=== PATIENT | female | born 1995 | race Caucasian/White ===

== ENCOUNTER 2017-03-21 20:03 | Observation (INO) | payer MEDICAID ==
[2016-08-19 19:30] VITALS: BMI 21.2
[2017-03-21] MEDS ORDERED: Lactated Ringer's 1,000 ML IV ONE (20:37)
[2017-03-21 21:34] LABS: BASO % 0.2 % (0.0-2.0); EOS # 0.4 K/uL (0.0-0.7); EOS % 3.5 % (0.0-4.0); HEMATOCRIT 28.2 % (34.0-47.0); LYMPH # 2.1 K/uL (1.0-4.3); LYMPH % 18.3 % (20.0-40.0); MEAN CELL VOLUME 86.2 fL (81.0-99.0); MEAN CORPUSCULAR HEMOGLOBIN 28.6 pg (27.0-31.0); MEAN CORPUSCULAR HGB CONC 33.2 g/dL (33.0-37.0); MEAN PLATELET VOLUME 9.2 fL (7.2-11.7); MONO # 0.9 K/uL (0.0-0.8); MONO % 8.2 % (0.0-10.0); RED CELL DISTRIBUTION WIDTH 12.5 % (11.5-14.5); WHITE BLOOD COUNT 11.2 K/uL (4.8-10.8)
[2017-03-21 21:36] LABS: CHLORIDE 104 mmol/L (98-107); POTASSIUM 3.5 mmol/L (3.6-5.2); SODIUM 134 mmol/L (132-148)
[2017-03-21 21:38] LABS: AST/SGOT 20 U/L (14-36); BILIRUBIN,TOTAL 0.3 mg/dL (0.2-1.3); CARBON DIOXIDE 23 mmol/L (22-30); GFR AFRICAN-AMERICAN > 60
[2017-03-21 21:39] LABS: ALKALINE PHOSPHATASE 218 U/L (38-126); ALT/SGPT 12 U/L (9-52); BLOOD UREA NITROGEN 7 mg/dL (7-17); GLUCOSE,RANDOM 97 mg/dL (65-105); TOTAL PROTEIN 5.7 g/dL (6.3-8.3)
[2017-03-21 21:40] LABS: CALCIUM 8.9 mg/dl (8.6-10.4)
[2017-03-21 21:51] LABS: RBC URINE 798 /hpf (0-3); URINE BACTERIA FEW (<OCC); URINE BILIRUBIN NEGATIVE (NEGATIVE); URINE BLOOD 3+ (NEGATIVE); URINE COLOR Yellow (YELLOW); URINE GLUCOSE (UA) NORMAL (Normal); URINE KETONE NEGATIVE (NEGATIVE); URINE LEUKOCYTE ESTERASE 3+ Leu/uL (Negative); URINE PROTEIN 2+ mg/dL (NEGATIVE); WBC CLUMPS FEW /hpf; WBC URINE 185 /hpf (0-5)
--- NOTE | 2017-03-21 22:41 | OBHP ---
Datetime: 03/21/2017 20:42 IP Adm Impression: , intrauterine ; No Active Labor IP Admit Plan: Observation/Evaluation Admit Comment, IP Provider: chief complaint-vaginal bleeding HPI 21 y/o at 33 wga by stated YOVANY, with c/o noticing an episode of vaginal bleeding.patient states that she was sitting and watching netflix and then when got upto go to bathroom she noticed bl ood on her underwear.Blood was drak red in color.denies passing any clots.Patient reports that she reyes d intercourse around 11 am today.Just after the intercourse she had noticed no bleeding.denies abdomi nal pain or pelvic pressure course-pnc with [facility] [place]; failed 1 hour gtt but has not done 3hr gtt PMH denies PSH denies OBGYN HX ; NVDX1; SABX1; TOPX1 Social hx denies tobacco,alcohol or illicit drug use Exam see exam section A/P 21 y/o at 33 wga with c/o episode of vaginal bleeding.?post coital versus other causes -abruption labs -ultrasound -iv fluids -urine drug screen and ua 10.15 pm patient states that she noticed only dark red blood on wiping whcih is scant now deneis abdominal pain urine drug screen negative plt 242k h/h 9.4/28.2 pt/ptt wnl fibrinogen 445 A/P 21 y/o at 33 wga with c/o vaginal bleeding. no active bleeding now -admit for observation Pelvic Type - PN: Adequate Extremities - PN: Normal Abdomen - PN: Normal Back - PN: Normal General - PN: Normal Contraction Comments Provider: none Comments, ACOG Physical Exam: pelvic exam vulva no lesions vagina dark red blood in vault cervix close duterus gravid adnexa no adnexal tenderness Gestation - Est Wks by US: 33.0 IP Hx Assessment: The History has been Reviewed and is Current EGA AdmitDate IP: 33.0 Vital Signs Provider: Reviewed IP Chief Complaint: Vaginal bleeding FHR Category Provider Fetus A: Category I Dilatation, Provider: 0 Genitourinary Exam: Abnormal DTRs - PN: Normal
[2017-03-21] MEDS ORDERED: Lactated Ringer's 1,000 ML IV SCH (22:45)
[2017-03-21] MEDS ORDERED: guaiFENesin 100 mg/5 ml Syrup UD PO PRN (23:34)
--- NOTE | 2017-03-21 23:57 | US ---
EXAM: US Biophys Prof W Non-Stress CLINICAL HISTORY: 21 years old, female; Signs and symptoms; Other: Bleeding; ; Additional info: Vaginal bleeding TECHNIQUE: Real-time ultrasound of the biophys prof w non-stress with image documentation. EXAM DATE/TIME: 03/21/2017 8:39 PM COMPARISON: No relevant prior studies available. FINDINGS: There is a live intrauterine . Measurements of the biparietal diameter, head circumference, abdominal circumference, femur length correspond to gestational age of 31 weeks 5 days. A heart rate of 158 beats per minute was obtained. The fetus is cephalic in presentation. Stomach, kidneys, and urinary bladder were identified. Limited images of the spine were submitted. The placenta is anterior in location. Punctate calcifications are noted. No placenta previa. The cervix measures 4 cm (transperineal). Amniotic fluid index of 10.8 cm was measured. There is a BPP of 8 out of 8 (breathing, movement, tone, fluid volume). IMPRESSION: Single live IUP with BPP of 8 out of 8 (breathing, movement, tone, fluid volume).
--- NOTE | 2017-03-22 09:15 | OBPN ---
Datetime: 03/22/2017 09:07 IP Progress Impression Other: Resolved Postcoital bleeding IP Progress Impression: Reassuring heart rate IP Procedures: Sterile Vag Exam IP Progress Plan: Discharge Membranes, Provider: Intact Contraction Comments Provider: occasional FHR - Baseline A Provider: 150 Gestation - Est Wks by US: 33.1 IP Progress Note Comment: 18yo S/P observation for postcoital bleeding. Pt reports no bleeding for the past 6 hours. She denies LOF and feels good movements. Tomas De Castro; occasional FHR- regular. Cx; Closed, No active bleeding Assessment: IUP at 33wks Postcoital Bleeding, Resolved Plan: D/c Home. F/U with [facility] [place] on Saturday. Labor instructions given. Pt to return to the ER with resumption of bleeding. NICHD Accel Fetus A IP Provider: 15X15 FHR Category Provider Fetus A: Category I NICHD Variability Prov Fetus A: Moderate 6-25bpm Dilatation, Provider: 0 Effacement, Provider: 0 Station, Provider: -3 Datetime: 03/21/2017 20:42 Vital Signs Provider: Reviewed
--- NOTE | 2017-03-22 09:17 | OBDCSUM ---
Datetime: 03/22/2017 09:11 Discharged to, Provider: Home Follow up at, Provider: Lisa Gaston CNM Disch Instr Activity: Normal activity Disch Instr Diet: Regular Discharge Diagnosis, Provider: Antepartum Bleeding Discharge Time: 03/22/2017 09:12 Follow up in weeks, Provider: 03/25/2017 Follow up in weeks, Provider: 1 week Discharge Comment, Provider: S/P Observation for Postcoital bleeding- Resolved Discharge Diagnosis Prov Other: S/P Observation for Postcoital bleeding- Resolved
--- NOTE | 2017-03-22 10:21 | RAD ---
PROCEDURE: CHEST RADIOGRAPH, 1 VIEW HISTORY: chronic cough COMPARISON: None available. FINDINGS: LUNGS: Clear. PLEURA: No pneumothorax or pleural fluid seen. CARDIOVASCULAR: Normal. OSSEOUS STRUCTURES: No significant abnormalities. VISUALIZED UPPER ABDOMEN: Normal. OTHER FINDINGS: None. IMPRESSION: No active disease.
== END 2017-03-22 09:30 | disposition home or self-care (01) ==
LOC: C.EROB 20:03 → C.4D 22:36
PROVIDERS: ADMIT Student in an Organized Health Care Education/Training Program; ATTEND Student in an Organized Health Care Education/Training Program
DX: N93.0 Postcoital and contact bleeding (principal); Z3A.33 33 weeks gestation of pregnancy
CPT/HCPCS: 71010; 76815; 76818; 80053; 80324; 80345; 80346; 80349; 80353; 80358; 80361; 81001; 83992; 85025; 85384; 85610; 85730; 86850; 86900; 99284; G0378; J7120

== ENCOUNTER 2017-04-20 13:32 | Emergency (ER) | payer MEDICAID ==
[2016-08-19 19:30] VITALS: BMI 21.2
--- NOTE | 2017-04-20 14:09 | OBHP ---
Datetime: 04/20/2017 14:00 IP Adm Impression: Term, intrauterine ; No Active Labor IP Admit Plan: Discharge home Admit Comment, IP Provider: Chief complaint-contraction HPI 21 y/o at 37.2 wga by stated YOVANY,36 weeks by ultrasound done on03/21/2017, presents to [place] with c/o contractions since 3 cm.denies vaginal bleeding or loss of fluid.Denies nausea, vomiting, h eadache, chest pain, shortness of breath, numbness or tingling in hands and feet course-pnc with [facility]; failed 1 hour gtt but has not done 3hr gtt; a ntepartum vaginal bleeding after intercourse at 33 weeks PMH denies PSH denies OBGYN HX ; NVDX1; SABX1; TOPX1 Social hx denies tobacco,alcohol or illicit drug use Exam see exam section A/P 21 y/o at 37.2 wga with c/o contractions.Patient in no apparent distress.FS glucsoe 80mg/ dl(approx 2 hr after lunch) -cervix closed -patient discharged home -follow up in clinic on saturday -patient given active labor precautions Pelvic Type - PN: Adequate Extremities - PN: Normal Abdomen - PN: Normal Back - PN: Normal Lungs - PN: Normal Heart - PN: Normal Neurologic - PN: Normal General - PN: Normal Weight - Estimated: 3000 Presentation-Admit: Vertex Contraction Comments Provider: irregular Gestation - Est Wks by US: 36.0 IP Hx Assessment: The History has been Reviewed and is Current EGA AdmitDate IP: 37.2 Vital Signs Provider: Reviewed IP Chief Complaint: Uterine contractions FHR Category Provider Fetus A: Category I Dilatation, Provider: 0 Effacement, Provider: thick Station, Provider: high Genitourinary Exam: Normal DTRs - PN: Normal Datetime: 03/22/2017 09:07 FHR - Baseline A Provider: 150 Membranes, Provider: Intact NICHD Variability Prov Fetus A: Moderate 6-25bpm NICHD Accel Fetus A IP Provider: 15X15
--- NOTE | 2017-04-24 01:15 | OBPPN ---
Datetime: 04/23/2017 08:07 PP Pain Prov: Within normal limits PP Nausea Prov: Denies PP Flatus Prov: Yes PP Heart Prov: Normal PP Lungs Prov: Normal PP Abdomen/Uterus Prov: Normal PP Lochia Prov: Normal PP CVA Tenderness Prov: Normal PP Extremities Prov: Normal PP C/S Incision Prov: Not Applicable PP Progress Prov: Not Applicable PP Impression Prov: Normal progression PP Plan Prov: Continue present management PP Progress Note Prov: S-patient denies any complaint.denies nausea, vomiting, headache, chest pain, shortness of breath, numbness or tingling in hands and feet.ambulating and voiding without diffuclty O-VSS Afebrile Fundus firm and below umbilcus extremities no calf tenderness A/P Patient s/p vaginal delivery ppd 1.occ elevtaed bp -check pih labs -continue to monitor closely Vital Signs Provider PP: Reviewed Vital Signs Provider Details PP: joel [id number]
--- NOTE | 2017-04-24 07:37 | OBPPN ---
Datetime: 04/24/2017 07:36 PP Pain Prov: Within normal limits PP Nausea Prov: Denies PP Flatus Prov: Yes PP Abdomen/Uterus Prov: Normal PP Lochia Prov: Normal PP Extremities Prov: Normal PP Comments Phys Exam Prov: fudus below umblicus ext mild edema,no calf ten PP Impression Prov: Normal progression PP Plan Prov: Discharge PP Progress Note Prov: pt was seen at bed side, pain under control, no n/v, tolerating deit, voiding ,min lochia, flatus+ ppd#2 s/p dc home no sex motrin prn f/u in 2days for bp check Vital Signs Provider PP: Reviewed; Within Normal Limits
--- NOTE | 2017-04-24 07:42 | OBDCSUM ---
Datetime: 04/24/2017 07:37 Discharged to, Provider: Home Follow up at, Provider: 2days Discharge Diagnosis, Provider: Term Delivered Follow up in weeks, Provider: clinic Disch Activity Restrictions: No lifting; No driving; Minimize walking; Minimize stair-climbing; No s exual activity; Nothing in vagina - [place], tampons, douche Discharge Comment, Provider: no sex motrin prn f/u in 2days for bp check preeclamptic s/s given Discharge Diagnosis Prov Other: 39weeks s/p
== END 2017-04-20 14:12 | disposition home or self-care (01) ==
LOC: C.EROB 13:32
DX: O47.1 False labor at or after 37 completed weeks of gestation (principal); Z3A.37 37 weeks gestation of pregnancy

== ENCOUNTER 2017-04-22 01:17 | Inpatient (IN) | payer MEDICAID ==
[2017-04-22 01:49] VITALS: BMI 24.7
[2017-04-22] MEDS ORDERED: Penicillin G 5 Million Unit Vial IVPB ONE ×2 (01:52→02:25)
--- NOTE | 2017-04-22 01:54 | OBADHP ---
Datetime: 04/22/2017 01:46 Admit Comment, IP Provider: Chief complaint-contractions HPI 21 y/o at 37.4 wga by stated YOVANY,36.2 weeks by ultrasound done on03/21/2017, presents to ob ed with c/o contractions .denies vaginal bleeding or loss of fluid.Denies nausea, vomiting, headache, chest pain, shortness of breath, numbness or tingling in hands and feet Patient was seen yesterday andwas discharged home as the cervix was closed course-[facility]; failed 1 hour gtt but has not done 3hr gtt; a ntepartum vaginal bleeding after intercourse at 33 weeks PMH denies PSH denies OBGYN HX ; NVDX1; SABX1; TOPX1 Social hx denies tobacco,alcohol or illicit drug use Exam see exam section A/P 21 y/o at 37.4 wga in labor.gbs unknown.patient in pain.repeat bp again -admit -see orders Pelvic Type - PN: Adequate Extremities - PN: Normal Abdomen - PN: Normal Back - PN: Normal Breast - PN: Normal Lungs - PN: Normal Heart - PN: Normal Neurologic - PN: Normal General - PN: Normal Weight - Estimated: 3000 Presentation-Admit: Vertex Contraction Comments Provider: every 2-3min Gestation - Est Wks by US: 37.4 IP Hx Assessment: The History has been Reviewed and is Current Vital Signs Provider: Reviewed IP Chief Complaint: Uterine contractions FHR Category Provider Fetus A: Category I Dilatation, Provider: 2 Effacement, Provider: 80 Station, Provider: -2 Genitourinary Exam: Normal DTRs - PN: Normal EGA AdmitDate IP: 37.4 IP Adm Impression: Term, intrauterine ; Active labor IP Admit Plan: Admit to unit; Initiate labor protocol Datetime: 03/22/2017 09:07 FHR - Baseline A Provider: 150 Membranes, Provider: Intact NICHD Variability Prov Fetus A: Moderate 6-25bpm NICHD Accel Fetus A IP Provider: 15X15
[2017-04-22 02:29] LABS: BASO # 0.1 K/uL (0.0-0.2); EOS # 0.3 K/uL (0.0-0.7); EOS % 2.6 % (0.0-4.0); WHITE BLOOD COUNT 13.6 K/uL (4.8-10.8)
[2017-04-22 02:33] LABS: BASO % 0.4 % (0.0-2.0); HEMOGLOBIN 10.6 g/dL (11.0-16.0); LYMPH # 2.5 K/uL (1.0-4.3); LYMPH % 18.3 % (20.0-40.0); MEAN CELL VOLUME 87.2 fL (81.0-99.0); MEAN CORPUSCULAR HEMOGLOBIN 28.5 pg (27.0-31.0); MEAN CORPUSCULAR HGB CONC 32.6 g/dL (33.0-37.0); MEAN PLATELET VOLUME 10.5 fL (7.2-11.7); MONO # 1.2 K/uL (0.0-0.8); MONO % 8.6 % (0.0-10.0); NEUT # 9.5 K/uL (1.8-7.0); NEUT % 70.1 % (50.0-75.0); NRBC % 0.1 % (0.0-2.0); RBC 3.71 Mil/uL (3.80-5.20); RED CELL DISTRIBUTION WIDTH 13.8 % (11.5-14.5)
[2017-04-22 02:36] LABS: SQUAMOUS EPITHIAL 4 /hpf (0-5); URINE BACTERIA OCC (<OCC); URINE BILIRUBIN NEGATIVE (NEGATIVE); URINE BLOOD NEGATIVE (NEGATIVE); URINE CLARITY Hazy (Clear); URINE COLOR Yellow (YELLOW); URINE GLUCOSE (UA) NORMAL (Normal); URINE LEUKOCYTE ESTERASE 3+ Leu/uL (Negative); URINE NITRATE NEGATIVE (NEGATIVE); URINE PROTEIN 2+ mg/dL (NEGATIVE); URINE UROBILINOGEN NORMAL mg/dL (0.2-1.0)
[2017-04-22 02:37] LABS: ALBUMIN 2.5 g/dL (3.5-5.0)
[2017-04-22 02:39] LABS: BENZODIAZEPINES, UR NEGATIVE (NEGATIVE)
[2017-04-22 02:40] LABS: ALT/SGPT 36 U/L (9-52); AST/SGOT 36 U/L (14-36); BARBITURATES, UR NEGATIVE (NEGATIVE); BLOOD UREA NITROGEN 10 mg/dL (7-17); GFR AFRICAN-AMERICAN > 60; GFR NON-AFRICAN AMERICAN > 60
[2017-04-22 02:41] LABS: CALCIUM 8.2 mg/dl (8.6-10.4)
[2017-04-22 02:43] LABS: OPIATES, UR NEGATIVE (NEGATIVE); PHENCYCLIDINE, UR NEGATIVE (NEGATIVE)
[2017-04-22 03:11] LABS: HEPATITIS B SURFACE AG NEGATIVE (NEGATIVE)
[2017-04-22 03:16] LABS: ALB/GLOB RATIO 0.9 (1.0-2.1)
[2017-04-22] MEDS ORDERED: Lactated Ringer's 1,000 ML IV SCH (05:15)
[2017-04-22] MEDS ORDERED: Oxytocin 30 UNIT 30 UNITS/500 ML BAG IV SCH ×2 (05:30→08:00)
[2017-04-22] MEDS ORDERED: Oxytocin 30 UNIT 30 UNITS/500 ML BAG IV ONE (05:31)
[2017-04-22] MEDS ORDERED: Bupivacaine HCl 0.25% PF (10 ml) Inj ONE (06:20)
[2017-04-22] MEDS ORDERED: Lidocaine 2% Inj (20ml) ONE (07:35)
[2017-04-22] MEDS ORDERED: Benzocaine/Menthol 20%-0.5% Topical Spray (60 ml) TOP PRN (07:56)
--- NOTE | 2017-04-22 08:08 | OBDS ---
DELIVERY PERSONNEL Delivery Doctor: Fred Jeong MD Anesthesiologist: Liza Francois MD MATERNAL INFORMATION Estimated Blood Loss (ml): 200 Provider Comments: baby deliverd in hiram. end clean no com LABOR SUMMARY EDC: 05/09/2017 00:00 No. Babies in Womb: 1 LABOR INFORMATION Onset of Labor: 04/22/2017 00:00 MEMBRANES Membranes Rupture Method: Spontaneous Rupture of Membranes: 04/22/2017 06:15 Length of Rupture (hrs): 1.72 Amniotic Fluid Color: Clear Amniotic Fluid Amount: Small Amniotic Fluid Odor: Normal STAGES OF LABOR Stage 3 hrs: 0 Stage 3 min: 6 Total Time in Labor hrs: 8 Total Time in Labor min: 4 VAGINAL DELIVERY Episiotomy: None Laceration Extension: N/A Laceration Type: None Sponge Count Correct: Yes Sharps Count Correct: N/A BABY A INFORMATION Delivery Date/Time: 04/22/2017 07:58 Method of Delivery: Vaginal Born in Route : No : N/A Forceps: N/A Vacuum Extraction: N/A Shoulder Dystocia : No SHOULDER DYSTOCIA BABY A Delivery Date/Time: 04/22/2017 07:58 PRESENTATION/POSITION BABY A Presentation: Cephalic Cephalic Presentation: Vertex Vertex Position: Left Occipital Anterior Breech Presentation: N/A PLACENTA INFORMATION BABY A Placenta Delivery Time : 04/22/2017 08:04 Placenta Method of Delivery: Spontaneous Placenta Status: Delivered INFANT INFORMATION BABY A Gestational Age at Delivery: 37.4 Gestational Status: Term Outcome : Liveborn Condition : Stable Infant Sex: Female IDENTIFICATION/MEDS BABY A ID Band Number: [id number] Sensor Applied: Yes Sensor Number: [id number] CORD INFORMATION BABY A Nuchal Cord : N/A
--- NOTE | 2017-04-22 08:08 | OBPN ---
Datetime: 04/22/2017 08:07 IP Progress Impression: Normal progression of labor IP Procedures: Sterile Vag Exam FHR - Baseline A Provider: 130 IP Progress Note Comment: pt was examined at bed side ve fd/1`00/0anticipate Vital Signs Provider: Reviewed; Within Normal Limits NICHD Accel Fetus A IP Provider: 15X15 FHR Category Provider Fetus A: Category I NICHD Variability Prov Fetus A: Moderate 6-25bpm Dilatation, Provider: 10 Effacement, Provider: 10 Station, Provider: -2 Datetime: 04/22/2017 01:46 Contraction Comments Provider: every 2-3min Gestation - Est Wks by US: 37.4 Weight - Estimated: 3000 Presentation-Admit: Vertex
[2017-04-22 17:15] LABS: RAPID PLASMA REAGIN NONREACTIVE (NONREACTIVE)
[2017-04-23] MEDS: Oxycodone/Acetaminophen 5/325 mg Tab PO PRN (04:07)
[2017-04-23 08:36] LABS: BASO # 0.1 K/uL (0.0-0.2); BASO % 0.5 % (0.0-2.0); EOS # 0.6 K/uL (0.0-0.7); HEMOGLOBIN 10.5 g/dL (11.0-16.0); LYMPH # 3.7 K/uL (1.0-4.3); MEAN CELL VOLUME 87.5 fL (81.0-99.0); MEAN CORPUSCULAR HEMOGLOBIN 28.8 pg (27.0-31.0); MEAN CORPUSCULAR HGB CONC 32.9 g/dL (33.0-37.0); MEAN PLATELET VOLUME 10.3 fL (7.2-11.7); MONO # 0.9 K/uL (0.0-0.8); MONO % 6.4 % (0.0-10.0); NEUT # 8.9 K/uL (1.8-7.0); NEUT % 63.1 % (50.0-75.0); RBC 3.64 Mil/uL (3.80-5.20); RED CELL DISTRIBUTION WIDTH 14.1 % (11.5-14.5)
[2017-04-23 08:41] LABS: INR 0.9; PROTHROMBIN TIME 9.7 SECONDS (9.7-12.2)
[2017-04-23 08:56] LABS: ALBUMIN 2.3 g/dL (3.5-5.0)
[2017-04-23 08:58] LABS: GFR AFRICAN-AMERICAN > 60; GFR NON-AFRICAN AMERICAN > 60
[2017-04-23 08:59] LABS: ALB/GLOB RATIO 0.9 (1.0-2.1); ALT/SGPT 33 U/L (9-52); AST/SGOT 34 U/L (14-36); BILIRUBIN,DIRECT 0.3 mg/dL (0.0-0.4); BLOOD UREA NITROGEN 10 mg/dL (7-17); CALCIUM 8.5 mg/dl (8.6-10.4)
[2017-04-24] MEDS: Oxycodone/Acetaminophen 5/325 mg Tab PO PRN (00:28)
[2017-04-24 03:42] VITALS: O2SAT 98
[2017-04-24 08:05] VITALS: BP 146/99; PULSE 82; RESP 18; TEMP 98.2
[2017-04-24] MEDS ORDERED: Measles, Mumps, and Rubella 0.5 ML VIAL SC ONE (10:00)
== END 2017-04-24 12:30 | disposition home or self-care (01) | DRG 373 ==
LOC: C.EROB 01:17 → C.4D 01:30 → C.4M 09:45
PROVIDERS: ADMIT Student in an Organized Health Care Education/Training Program; ATTEND Student in an Organized Health Care Education/Training Program
PROC: 10E0XZZ Delivery of Products of Conception, External Approach (ICD-10-PCS; principal; 2017-04-22)
DX: O80 Encounter for full-term uncomplicated delivery (principal); Z37.0 Single live birth; Z3A.37 37 weeks gestation of pregnancy

== ENCOUNTER 2017-09-24 19:17 | Emergency (ER) | payer MEDICAID ==
[2017-09-24 19:18] VITALS: BMI 24.7
[2017-09-24 19:28] VITALS: RESP 20; O2SAT 99
[2017-09-24] MEDS ORDERED: Lactated Ringer's 1,000 ML IV STA (20:45)
[2017-09-24 20:58] LABS: BASO % 0.5 % (0.0-2.0); EOS # 0.4 K/uL (0.0-0.7); EOS % 4.9 % (0.0-4.0); LYMPH # 2.1 K/uL (1.0-4.3); LYMPH % 23.5 % (20.0-40.0); MEAN CELL VOLUME 87.6 fL (81.0-99.0); MEAN CORPUSCULAR HEMOGLOBIN 29.5 pg (27.0-31.0); MEAN CORPUSCULAR HGB CONC 33.7 g/dL (33.0-37.0); MEAN PLATELET VOLUME 8.5 fL (7.2-11.7); MONO # 0.7 K/uL (0.0-0.8); MONO % 8.1 % (0.0-10.0); RED CELL DISTRIBUTION WIDTH 13.2 % (11.5-14.5); WHITE BLOOD COUNT 9.1 K/uL (4.8-10.8)
[2017-09-24] MEDS ORDERED: Lactated Ringer's 1,000 ML ONE (21:03)
--- NOTE | 2017-09-24 21:04 | C.PDOC ---
History Of Present Illness 22 year old female with a Hx of pancreatitis presents to the ER with a complaint of abdominal pain, associated with nausea and vomiting. Patient reports she was hospitalized twice before in the past for pancreatitis and notes her pain feels similar to past episodes. Denies bloody stools, dysuria, or hematuria. Chief Complaint (Nursing): Abdominal Pain History Per: Patient History/Exam Limitations: no limitations Onset/Duration Of Symptoms: Hrs Current Symptoms Are (Timing): Still Present Location Of Pain/Discomfort: Diffuse Radiation Of Pain To:: None Quality Of Discomfort: Unable To Describe Associated Symptoms: Nausea, Vomiting. denies: Fever, Chills, Urinary Symptoms Exacerbating Factors: None Alleviating Factors: None Recent travel outside of the [place]: No Abnormal Vaginal Bleeding: No Past Medical History Reviewed: Historical Data, Nursing Documentation, Vital Signs Vital Signs: Last Vital Signs Temp 98 F 09/24/17 22:26 Pulse 80 09/24/17 22:26 Resp 20 09/24/17 22:26 BP 111/73 09/24/17 22:26 Pulse Ox 99 09/24/17 22:26 - Medical History PMH: Arthritis, Pancreatitis - [facility] Procedures DELIVERY OF PRODUCTS OF CONCEPTION, EXTERNAL APPROACH (04/22/17) MANUAL ASSIST DELIV NEC (08/20/14) MEDICAL INDUCTION LABOR (08/20/14) Family History: States: Unknown Family Hx - Social History Hx Tobacco Use: No Hx Alcohol Use: No Hx Substance Use: No - Immunization History Hx Tetanus Toxoid Vaccination: No Hx Influenza Vaccination: No Hx Pneumococcal Vaccination: No Review Of Systems Constitutional: Negative for: Fever, Chills Gastrointestinal: Positive for: Nausea, Vomiting, Abdominal Pain Genitourinary: Negative for: Dysuria, Hematuria Physical Exam - Physical Exam Appears: Non-toxic Skin: Normal Color, Warm, Dry Head: Atraumatic, Normacephalic Eye(s): bilateral: Normal Inspection Oral Mucosa: Moist Chest: Symmetrical, No Tenderness Cardiovascular: Rhythm Regular Respiratory: Normal Breath Sounds, No Rales, No Rhonchi, No Wheezing Gastrointestinal/Abdominal: Soft, Tenderness (Epigastric), No Guarding, No Rebound Neurological/Psych: Oriented x3, Normal Speech ED Course And Treatment - Laboratory Results Result Diagrams: 09/24/17 20:53 09/24/17 20:53 O2 Sat by Pulse Oximetry: 99 (room air) Pulse Ox Interpretation: Normal Progress Note: CT abd/pel, blood work, and urinalysis ordered. IV fluids, pepcid , toradol, and zofran administered. Disposition - Disposition Referrals: Romero Romero, [Non-Staff] - Disposition: HOME/ ROUTINE Disposition Time: 22:50 Condition: IMPROVED Additional Instructions: Thank you for letting us take care of you today. The emergency medical care you received today was directed at your acute symptoms. If you were prescribed any medication, please fill it and take as directed. It may take several days for your symptoms to resolve. Return to the Emergency Department if your symptoms worsen, do not improve, or if you have any other problems. Please contact your doctor or call one of the physicians/clinics you have been referred to that are listed on the Patient Visit Information form that is included in your discharge packet. Bring any paperwork you were given at discharge with you along with any medications you are taking to your follow up visit. Our treatment cannot replace ongoing medical care by a primary care provider (PCP) outside of the emergency department. Thank you for allowing the [email or web address] team to be part of your care today. Follow up with your [facility] doctor this week for outpatient care and management. Prescriptions: Vit No.126/Iron/Folic [Classic Tablet] 1 each PO DAILY #30 tablet Instructions: Abdominal Pain in (ED) Forms: [employer] (Ukrainian) - Clinical Impression Clinical Impression: Abdominal pain during - Scribe Statement The provider has reviewed the documentation as recorded by the Scribe Garrick Le All medical record entries made by the Scribe were at my direction and personally dictated by me. I have reviewed the chart and agree that the record accurately reflects my personal performance of the history, physical exam, medical decision making, and the department course for this patient. I have also personally directed, reviewed, and agree with the discharge instructions and disposition.
[2017-09-24 21:09] LABS: RBC URINE 5 /hpf (0-3); URINE BACTERIA RARE (<OCC); URINE BILIRUBIN NEGATIVE (NEGATIVE); URINE BLOOD NEGATIVE (NEGATIVE); URINE COLOR Yellow (YELLOW); URINE GLUCOSE (UA) NORMAL (Normal); URINE KETONE NEGATIVE (NEGATIVE); URINE LEUKOCYTE ESTERASE 2+ Leu/uL (Negative); URINE PROTEIN NEGATIVE (NEGATIVE); WBC URINE 27 /hpf (0-5)
[2017-09-24 21:19] LABS: ALB/GLOB RATIO 1.6 (1.0-2.1); ALKALINE PHOSPHATASE 59 U/L (38-126); ALT/SGPT 44 U/L (9-52); AST/SGOT 20 U/L (14-36); BILIRUBIN,TOTAL 0.3 mg/dL (0.2-1.3); BLOOD UREA NITROGEN 10 mg/dL (7-17); CARBON DIOXIDE 25 mmol/L (22-30); CHLORIDE 103 mmol/L (98-107); GFR AFRICAN-AMERICAN > 60; GLUCOSE,RANDOM 80 mg/dL (65-105); POTASSIUM 3.6 mmol/L (3.6-5.2); SODIUM 137 mmol/L (132-148); TOTAL PROTEIN 6.5 g/dL (6.3-8.3)
[2017-09-24 22:27] VITALS: BP 111/73; PULSE 80; TEMP 98
== END 2017-09-24 23:06 | disposition home or self-care (01) ==
LOC: C.ER 19:17
DX: O26.899 Other specified pregnancy related conditions, unspecified trimester (principal); R10.9 Unspecified abdominal pain
CPT/HCPCS: 80053; 81001; 83690; 84702; 84703; 85025; 87086; 96374; 96375; 99284; J1885; J2405; J7120

== ENCOUNTER 2017-12-14 13:49 | Emergency (ER) | payer MEDICAID ==
[2017-12-14 13:50] VITALS: BMI 24.7
[2017-12-14 13:56] VITALS: BP 113/76; PULSE 97; RESP 20; TEMP 98; O2SAT 100
--- NOTE | 2017-12-14 14:10 | C.PDOC ---
History Of Present Illness 22-year-old female, presents to the emergency department with complaints of a frontal headache, clogged ears, sore throat ongoing over one week. Patient states she feels light headedness that is associated with nasal congestion and yellow mucus. Patient is taking Tylenol and Advil at home with minimal relief. Denies fever Time Seen by Provider: 12/14/17 14:05 Chief Complaint (Nursing): Headache History Per: Patient History/Exam Limitations: no limitations Onset/Duration Of Symptoms: Days Current Symptoms Are (Timing): Still Present Past Medical History Reviewed: Historical Data, Nursing Documentation, Vital Signs Vital Signs: Last Vital Signs Temp 98 F 12/14/17 13:54 Pulse 97 H 12/14/17 13:54 Resp 20 12/14/17 13:54 BP 113/76 12/14/17 13:54 Pulse Ox 100 12/14/17 16:26 - Medical History PMH: Arthritis, Pancreatitis - [facility] Procedures DELIVERY OF PRODUCTS OF CONCEPTION, EXTERNAL APPROACH (04/22/17) MANUAL ASSIST DELIV NEC (08/20/14) MEDICAL INDUCTION LABOR (08/20/14) Family History: States: No Known Family Hx - Social History Hx Tobacco Use: No Hx Alcohol Use: No Hx Substance Use: No - Immunization History Hx Tetanus Toxoid Vaccination: No Hx Influenza Vaccination: No Hx Pneumococcal Vaccination: No Review Of Systems Constitutional: Negative for: Fever ENT: Negative for: Ear Pain (clogged) Cardiovascular: Positive for: Light Headedness. Negative for: Chest Pain Respiratory: Positive for: Cough, Sputum Gastrointestinal: Negative for: Vomiting Musculoskeletal: Negative for: Neck Pain, Back Pain Skin: Negative for: Rash Neurological: Positive for: Headache. Negative for: Weakness Physical Exam - Physical Exam Appears: Non-toxic, No Acute Distress Skin: Normal Color, Warm, Dry, No Rash Head: Atraumatic, Normacephalic, No Tenderness, No Swelling Eye(s): bilateral: Normal Inspection, PERRL, EOMI Ear(s): Bilateral: Normal (no erythema) Nose: Normal Oral Mucosa: Moist Lips: Normal Appearing Throat: No Erythema Neck: Normal ROM, Trachea Midline, Supple, Other ((-)meningeal signs) Cardiovascular: Rhythm Regular, No Murmur Respiratory: Normal Breath Sounds, No Accessory Muscle Use, No Wheezing Gastrointestinal/Abdominal: Soft, No Tenderness, No Guarding, No Rebound Back: Normal Inspection, No CVA Tenderness Extremity: Normal ROM, No Deformity, No Swelling Neurological/Psych: Oriented x3, Normal Speech, Normal Cranial Nerves, Normal Motor, Normal Sensation Gait: Steady ED Course And Treatment O2 Sat by Pulse Oximetry: 100 (RA) Pulse Ox Interpretation: Normal Medical Decision Making Medical Decision Making: Patient will be discharged with Rx for Augmentin and Sudafed, she will be advised Take medications as prescribed, take Tylenol or Motrin alternating every 4-6 hours for Fever 100.4F or higher. Rest and drink plenty of fluids, try taking over the counter antihistamine. Return to the emergency department at any time if symptoms persist or worsen. Disposition Counseled Patient/Family Regarding: Diagnosis, Need For Followup, Rx Given - Disposition Disposition: HOME/ ROUTINE Disposition Time: 14:08 Condition: STABLE Additional Instructions: Please follow up with your primary doctor or clinic in 2-5 days for further evaluation. Take medications as prescribed. Take Tylenol or Motrin alternating every 4-6 hours for Fever 100.4F or higher. Rest and drink plenty of fluids. MTry taking over the counter antihistamine. Return to the emergency department at any time if symptoms persist or worsen. Prescriptions: Amoxicillin/Clavulanate [Augmentin 875 MG-125 MG] 1 tab PO BID #14 tab Pseudoephedrine HCl [Sudafed 12-Hour] 120 mg PO Q12 #24 tablet.er Instructions: Sinusitis in Adults Forms: [facility] (Stateless) - POA Present On Arrival: None - Clinical Impression Clinical Impression: Sinusitis - Scribe Statement The provider has reviewed the documentation as recorded by the Scribe (Williams Palma) All medical record entries made by the Scribe were at my direction and personally dictated by me. I have reviewed the chart and agree that the record accurately reflects my personal performance of the history, physical exam, medical decision making, and the department course for this patient. I have also personally directed, reviewed, and agree with the discharge instructions and disposition.
== END 2017-12-14 14:37 | disposition home or self-care (01) ==
LOC: C.ER 13:49
DX: J32.9 Chronic sinusitis, unspecified (principal)

== ENCOUNTER 2018-01-08 14:38 | Emergency (ER) | payer MEDICAID ==
[2018-01-08 14:38] VITALS: BMI 24.7
[2018-01-08 16:01] LABS: HCG,QUALITATIVE URINE NEGATIVE (NEGATIVE)
[2018-01-08 16:13] LABS: SQUAMOUS EPITHIAL 8 /hpf (0-5); URINE BACTERIA MANY (<OCC); URINE BILIRUBIN NEGATIVE (NEGATIVE); URINE CLARITY Hazy (Clear); URINE COLOR Yellow (YELLOW); URINE GLUCOSE (UA) NORMAL (Normal); URINE PROTEIN 1+ mg/dL (NEGATIVE); URINE UROBILINOGEN NORMAL mg/dL (0.2-1.0)
[2018-01-08 16:14] LABS: URINE BLOOD 1+ (NEGATIVE); URINE LEUKOCYTE ESTERASE 3+ Leu/uL (Negative)
--- NOTE | 2018-01-08 16:27 | C.PDOC ---
History Of Present Illness 22 y/o female presents to the ER complaining of dysuria, frequency,and urgency which has been present for the past 1 day. Patient states that she also has subjective fever. She denies having nausea, vomiting, and diarrhea. Time Seen by Provider: 01/08/18 14:50 Chief Complaint (Nursing): Female Genitourinary History Per: Patient History/Exam Limitations: no limitations Onset/Duration Of Symptoms: Days Current Symptoms Are (Timing): Still Present Severity: Moderate Past Medical History Reviewed: Historical Data, Nursing Documentation, Vital Signs Vital Signs: Last Vital Signs Temp 98.6 F 01/08/18 16:24 Pulse 85 01/08/18 16:24 Resp 16 01/08/18 16:24 BP 102/67 01/08/18 16:24 Pulse Ox 100 01/08/18 17:04 - Medical History PMH: Arthritis, Pancreatitis Surgical History: No Surg Hx - [facility] Procedures DELIVERY OF PRODUCTS OF CONCEPTION, EXTERNAL APPROACH (04/22/17) MANUAL ASSIST DELIV NEC (08/20/14) MEDICAL INDUCTION LABOR (08/20/14) Family History: States: No Known Family Hx - Social History Hx Tobacco Use: No Hx Alcohol Use: No Hx Substance Use: No - Immunization History Hx Tetanus Toxoid Vaccination: No Hx Influenza Vaccination: No Hx Pneumococcal Vaccination: No Review Of Systems Except As Marked, All Systems Reviewed And Found Negative. Constitutional: Positive for: Fever (subjective fever). Negative for: Chills Gastrointestinal: Negative for: Nausea, Vomiting, Diarrhea Genitourinary: Positive for: Dysuria, Frequency Physical Exam - Physical Exam Appears: Non-toxic, No Acute Distress Skin: Normal Color, Warm Head: Atraumatic, Normacephalic Eye(s): bilateral: Normal Inspection Ear(s): Bilateral: Normal Nose: Normal Oral Mucosa: Moist Throat: Normal, No Erythema, No Exudate Neck: Supple Chest: Symmetrical Cardiovascular: Rhythm Regular Respiratory: Normal Breath Sounds, No Rales, No Rhonchi, No Wheezing Gastrointestinal/Abdominal: Soft, Tenderness (mild suprapubic tenderness) Extremity: Normal ROM Neurological/Psych: Oriented x3, Normal Speech ED Course And Treatment O2 Sat by Pulse Oximetry: 100 (RA) Pulse Ox Interpretation: Normal Progress Note: Patient given Pyridium PO and Macrobid PO.HCG and UA ordered. Disposition - Disposition Disposition: HOME/ ROUTINE Disposition Time: 16:25 Condition: STABLE Additional Instructions: Follow up with PMD within 1-2 days. Return to ED if feel worse. Prescriptions: Nitrofurantoin Macrocrystals [Macrobid] 1 cap PO BID #14 cap Phenazopyridine [Pyridium] 200 mg PO TID #10 tab Instructions: Urinary Tract Infections in Adults Forms: [facility] (French) - Clinical Impression Clinical Impression: UTI (urinary tract infection) - PA / DIRECTOR LABOR STANDARDS / Resident Statement MD/DO has reviewed & agrees with the documentation as recorded. - Scribe Statement The provider has reviewed the documentation as recorded by the Binh Alan Provider Attestation All medical record entries made by the Isaacibe were at my direction and personally dictated by me. I have reviewed the chart and agree that the record accurately reflects my personal performance of the history, physical exam, medical decision making, and the department course for this patient. I have also personally directed, reviewed, and agree with the discharge instructions and disposition.
[2018-01-09 11:17] VITALS: BP 102/67; PULSE 85; RESP 16; TEMP 98.6; O2SAT 100
== END 2018-01-08 16:31 | disposition home or self-care (01) ==
LOC: C.ER 14:38
DX: N39.0 Urinary tract infection, site not specified (principal)

== ENCOUNTER 2018-03-11 11:27 | Emergency (ER) | payer MEDICAID ==
[2018-03-11 11:27] VITALS: BMI 24.7
[2018-03-11 11:35] VITALS: BP 108/76; PULSE 89; RESP 16; TEMP 98.4; O2SAT 100
[2018-03-11] MEDS ORDERED: Fluorescein 1 mg Ophthalmic Strip OD ONE (11:45)
[2018-03-11] MEDS ORDERED: Fluorescein 1 mg Ophthalmic Strip ONE (11:54)
--- NOTE | 2018-03-11 11:59 | C.PDOC ---
History Of Present Illness 22 year old female, with no significant PMHx, presents to the ED for evaluation of pain, burning sensation, redness and tearing to right eye. Patient states she wears contact lenses. Patient notes the lens began irritating her two days ago. She cannot take the lens out because she cannot keep her eye open due to the pain. She denies fever, chills, headache, neck pain, blurry vision. Time Seen by Provider: 03/11/18 11:40 Chief Complaint (Nursing): Eye Problem History Per: Patient History/Exam Limitations: no limitations Onset/Duration Of Symptoms: Days (2) Current Symptoms Are (Timing): Still Present Quality: Burning, "Pain" Associated Symptoms: Other (tearing ). denies: Decreased Vision Additional History Per: Patient Past Medical History Reviewed: Historical Data, Nursing Documentation, Vital Signs Vital Signs: Last Vital Signs Temp 98.4 F 03/11/18 11:34 Pulse 89 03/11/18 11:34 Resp 16 03/11/18 11:34 BP 108/76 03/11/18 11:34 Pulse Ox 100 03/11/18 12:00 - Medical History PMH: Arthritis, Pancreatitis Surgical History: No Surg Hx - [facility] Procedures DELIVERY OF PRODUCTS OF CONCEPTION, EXTERNAL APPROACH (04/22/17) MANUAL ASSIST DELIV NEC (08/20/14) MEDICAL INDUCTION LABOR (08/20/14) Family History: States: Unknown Family Hx - Social History Hx Tobacco Use: No Hx Alcohol Use: No Hx Substance Use: No - Immunization History Hx Tetanus Toxoid Vaccination: No Hx Influenza Vaccination: No Hx Pneumococcal Vaccination: No Review Of Systems Constitutional: Negative for: Fever, Chills Eyes: Positive for: Other (pain, burning, redness and tearing from right eye ). Negative for: Vision Change Musculoskeletal: Negative for: Neck Pain Neurological: Negative for: Headache Physical Exam - Physical Exam Appears: Non-toxic, No Acute Distress Skin: Normal Color, Warm, Dry Head: Atraumatic, Normacephalic Eye(s): bilateral: PERRL, EOMI, Other (significant conjunctival injection with tearing. contact lens in place. photosensitivity), left: Normal Inspection Oral Mucosa: Moist Neck: Normal ROM, Supple Chest: Symmetrical, No Deformity, No Tenderness Extremity: Normal ROM Neurological/Psych: Oriented x3, Normal Speech, Normal Cognition ED Course And Treatment O2 Sat by Pulse Oximetry: 100 (on RA) Pulse Ox Interpretation: Normal Medical Decision Making Medical Decision Making: Progress: Tetracaine eye drops placed in right eye. Able to remove contact lens with success. Right eye Fluorescein stained. Abrasion seen at lower portion of iris. Right eye rinsed with eye wash. Patient tolerated well. On re-examination, patient is resting comfortably, showing no signs of distress and is stable for discharge. Patient is advised to follow up with eye care within 1-2 days for further evaluation and/or return to the ED if symptoms persist or worsen. Disposition Counseled Patient/Family Regarding: Diagnosis, Rx Given - Disposition Disposition: HOME/ ROUTINE Disposition Time: 11:55 Condition: GOOD Additional Instructions: Follow up with your sql etl developer today or tomorrow. Do not put your contact lens back in the right eye. Prescriptions: Bacitracin/Polymyxin B Sulfate [Bacitracin Zinc/Polymyxin B Sulfate 500 U/gm-] 1 oin OD QID #1 tube Ofloxacin Ophth 0.3% [Ocuflox Ophth 0.3%] 2 drop OD QID #1 bottle Instructions: Corneal Abrasion (DC) Forms: General Discharge Instructions, [facility] (Tajik), Work Excuse - POA Present On Arrival: None - Clinical Impression Clinical Impression: Corneal abrasion - Scribe Statement The provider has reviewed the documentation as recorded by the Scribe (Haylee Porter) Provider Attestation: All medical record entries made by the Scribe were at my direction and personally dictated by me. I have reviewed the chart and agree that the record accurately reflects my personal performance of the history, physical exam, medical decision making, and the department course for this patient. I have also personally directed, reviewed, and agree with the discharge instructions and disposition.
== END 2018-03-11 12:16 | disposition home or self-care (01) ==
LOC: C.ER 11:27
DX: S05.01XA Injury of conjunctiva and corneal abrasion without foreign body, right eye, initial encounter (principal); X58.XXXA Exposure to other specified factors, initial encounter; Y92.9 Unspecified place or not applicable

== ENCOUNTER 2018-08-29 14:18 | Emergency (ER) | payer MEDICAID ==
[2018-08-29 14:19] VITALS: BMI 24.7
[2018-08-29 14:22] VITALS: BP 111/74; PULSE 83; RESP 20; TEMP 98; O2SAT 100
[2018-08-29 15:02] LABS: HCG,QUALITATIVE URINE NEGATIVE (NEGATIVE)
[2018-08-29 15:10] LABS: URINE BILIRUBIN NEGATIVE (NEGATIVE); URINE CLARITY Clear (Clear); URINE COLOR YELLOW (YELLOW); URINE GLUCOSE (UA) NEGATIVE (Normal)
[2018-08-29 15:11] LABS: URINE BLOOD TRACE (NEGATIVE); URINE LEUKOCYTE ESTERASE TRACE Leu/uL (Negative); URINE PROTEIN TRACE mg/dL (NEGATIVE)
[2018-08-29 15:12] LABS: SQUAMOUS EPITHIAL 1 /hpf (0-5); URINE BACTERIA RARE (<OCC)
--- NOTE | 2018-08-29 15:16 | C.PDOC ---
History Of Present Illness 23 year old female presents to the ED complaining of abdominal discomfort, vomiting and diarrhea for 2 days. States she eats a normal diet. Notes she has two small children at home who are not sick. Boyfriend is present at bedside with no GI symptoms. Time Seen by Provider: 08/29/18 14:28 Chief Complaint (Nursing): Abdominal Pain History Per: Patient History/Exam Limitations: no limitations Onset/Duration Of Symptoms: Days (2) Current Symptoms Are (Timing): Still Present Location Of Pain/Discomfort: Diffuse Associated Symptoms: Vomiting, Diarrhea. denies: Fever, Chills, Back Pain, Urinary Symptoms Past Medical History Reviewed: Historical Data, Nursing Documentation, Vital Signs Vital Signs: Last Vital Signs Temp 98 F 08/29/18 14:20 Pulse 83 08/29/18 14:20 Resp 20 08/29/18 14:20 BP 111/74 08/29/18 14:20 Pulse Ox 100 08/29/18 14:20 - Medical History PMH: Arthritis, Pancreatitis Surgical History: No Surg Hx - [facility] Procedures DELIVERY OF PRODUCTS OF CONCEPTION, EXTERNAL APPROACH (04/22/17) MANUAL ASSIST DELIV NEC (08/20/14) MEDICAL INDUCTION LABOR (08/20/14) Family History: States: No Known Family Hx - Social History Hx Tobacco Use: No Hx Alcohol Use: No Hx Substance Use: No - Immunization History Hx Tetanus Toxoid Vaccination: No Hx Influenza Vaccination: No Hx Pneumococcal Vaccination: No Review Of Systems Except As Marked, All Systems Reviewed And Found Negative. Constitutional: Negative for: Fever, Chills Gastrointestinal: Positive for: Vomiting, Abdominal Pain, Diarrhea Genitourinary: Negative for: Dysuria, Hematuria, Vaginal Discharge, Vaginal Bleeding Physical Exam - Physical Exam Appears: Non-toxic, No Acute Distress Skin: Warm, Dry, No Rash Head: Normacephalic Eye(s): bilateral: Normal Inspection Nose: Normal Oral Mucosa: Moist Throat: Normal, No Erythema, No Exudate Neck: Normal ROM, Supple Chest: Symmetrical Cardiovascular: Rhythm Regular Respiratory: Normal Breath Sounds, No Rales, No Rhonchi, No Wheezing Gastrointestinal/Abdominal: Bowel Sounds (active, normal), Soft, No Tenderness, No Distention, No Guarding, No Rebound Extremity: Bilateral: Atraumatic, Normal Color And Temperature, Normal ROM Neurological/Psych: Oriented x3, Normal Speech Gait: Steady ED Course And Treatment O2 Sat by Pulse Oximetry: 100 (RA) Pulse Ox Interpretation: Normal Medical Decision Making Medical Decision Making: Plan - Pepcid 20mg PO - Zofran 4mg PO viral syndrome with vomiting and diarrhea 2 kids at home, not sick appears well hydrated, benign belly and tolerating PO ua/preg neg. Disposition Doctor Will See Patient In The: Office Counseled Patient/Family Regarding: Studies Performed, Diagnosis - Disposition Referrals: [facility] [Outside] [facility] [Outside] [facility] [Outside] [facility] [Outside] Disposition: HOME/ ROUTINE Disposition Time: 15:16 Condition: GOOD Additional Instructions: bland/BRAT diet: Bananas, white rice, apples/toast/breat plenty of water/gatorade very contagious, avoid sharing plate and silverware with your children Zofran 4 mg ODT as needed for nausea/vomiting Prescriptions: Ondansetron ODT [Zofran ODT] 4 mg PO Q6H PRN #6 odt PRN Reason: Nausea/Vomiting Instructions: Nausea and Vomiting, Adult (DC), Viral Syndrome (DC) Forms: [facility] ([place] Islander) - Clinical Impression Clinical Impression: Vomiting and diarrhea - Scribe Statement The provider has reviewed the documentation as recorded by the Scribingris Carbajal All medical record entries made by the Scribe were at my direction and personally dictated by me. I have reviewed the chart and agree that the record accurately reflects my personal performance of the history, physical exam, medical decision making, and the department course for this patient. I have also personally directed, reviewed, and agree with the discharge instructions and disposition.
== END 2018-08-29 15:24 | disposition home or self-care (01) ==
LOC: C.ER 14:18
DX: R11.10 Vomiting, unspecified (principal); R19.7 Diarrhea, unspecified; K85.90 Acute pancreatitis without necrosis or infection, unspecified

== ENCOUNTER 2018-09-08 12:34 | Emergency (ER) | payer MEDICAID ==
[2018-09-08 12:34] VITALS: BMI 24.7
[2018-09-08 12:41] VITALS: RESP 18; TEMP 98.6; O2SAT 100
[2018-09-08] MEDS ORDERED: Sodium Chloride 0.9% 1,000 ML IV STA (13:10)
--- NOTE | 2018-09-08 13:15 | C.PDOC ---
History Of Present Illness 23 year old female presents to the ED complaining of headache, nausea, and decreased urinary output for the past 3 days. Reports light and sound bother her. States she had one similar presentation in the past with one episode of vomiting when she was diagnosed with migraine by PMD. Denies any fever, chills, dizziness, lightheadedness, vomiting, or neck pain. Denies any head trauma. Time Seen by Provider: 09/08/18 12:49 Chief Complaint (Nursing): Headache History Per: Patient History/Exam Limitations: no limitations Onset/Duration Of Symptoms: Days (3) Current Symptoms Are (Timing): Still Present Preceeding Symptoms: Known Migraine Symptoms Associated Symptoms: Photophobia, Nausea. denies: Vomiting, Extremity Weakness Past Medical History Reviewed: Historical Data, Nursing Documentation, Vital Signs Vital Signs: Last Vital Signs Temp 98.6 F 09/08/18 12:39 Pulse 76 09/08/18 12:39 Resp 18 09/08/18 12:39 BP 122/82 09/08/18 12:39 Pulse Ox 100 09/08/18 12:39 - Medical History PMH: Arthritis, Pancreatitis Surgical History: No Surg Hx - [facility] Procedures DELIVERY OF PRODUCTS OF CONCEPTION, EXTERNAL APPROACH (04/22/17) MANUAL ASSIST DELIV NEC (08/20/14) MEDICAL INDUCTION LABOR (08/20/14) Family History: States: No Known Family Hx - Social History Hx Tobacco Use: No Hx Alcohol Use: No Hx Substance Use: No - Immunization History Hx Tetanus Toxoid Vaccination: No Hx Influenza Vaccination: No Hx Pneumococcal Vaccination: No Review Of Systems Except As Marked, All Systems Reviewed And Found Negative. Constitutional: Negative for: Fever, Chills Eyes: Positive for: Other (photophobia ) Cardiovascular: Negative for: Light Headedness Gastrointestinal: Positive for: Nausea. Negative for: Vomiting Neurological: Positive for: Headache. Negative for: Dizziness Physical Exam - Physical Exam Appears: Non-toxic, No Acute Distress Skin: Warm, Dry Head: Atraumatic, Normacephalic Eye(s): bilateral: Normal Inspection, PERRL, EOMI Nose: Normal Oral Mucosa: Moist Neck: Normal ROM, Supple Extremity: Bilateral: Atraumatic, Normal Color And Temperature, Normal ROM Neurological/Psych: Oriented x3, Normal Speech Gait: Steady ED Course And Treatment O2 Sat by Pulse Oximetry: 100 (RA) Pulse Ox Interpretation: Normal Medical Decision Making Medical Decision Making: Plan - Tylenol 975mg PO - Toradol 30mg IVP - Reglan 10mg IVP - IV fluids - POC Patient feeling better Disposition Counseled Patient/Family Regarding: Diagnosis, Need For Followup, Rx Given - Disposition Disposition: HOME/ ROUTINE Disposition Time: 15:13 Condition: STABLE Prescriptions: Ibuprofen [Motrin] 600 mg PO TID #15 tab Instructions: Migraine Headaches in Adults Forms: [facility] (Armenian), General Discharge Instructions - POA Present On Arrival: None - Clinical Impression Clinical Impression: Migraine - Scribe Statement The provider has reviewed the documentation as recorded by the Scribe Irene Carbajal All medical record entries made by the Scribe were at my direction and personally dictated by me. I have reviewed the chart and agree that the record accurately reflects my personal performance of the history, physical exam, medical decision making, and the department course for this patient. I have also personally directed, reviewed, and agree with the discharge instructions and disposition.
[2018-09-08] MEDS ORDERED: Sodium Chloride 0.9% 1,000 ML ONE (13:42)
[2018-09-08 14:51] LABS: SQUAMOUS EPITHIAL 2 /hpf (0-5); URINE BACTERIA RARE (<OCC); URINE BILIRUBIN NEGATIVE (NEGATIVE); URINE BLOOD 2+ (NEGATIVE); URINE CLARITY Clear (Clear); URINE COLOR Yellow (YELLOW); URINE GLUCOSE (UA) NORMAL (Normal); URINE LEUKOCYTE ESTERASE NEG Leu/uL (Negative); URINE PROTEIN NEGATIVE (NEGATIVE); URINE UROBILINOGEN NORMAL mg/dL (0.2-1.0)
[2018-09-08 16:57] VITALS: BP 100/65; PULSE 68
== END 2018-09-08 16:57 | disposition home or self-care (01) ==
LOC: C.ER 12:34
DX: G43.909 Migraine, unspecified, not intractable, without status migrainosus (principal)
CPT/HCPCS: 81001; 96361; 96374; 96375; 99284; J1885; J2765; J7030